=== PATIENT | male | born 1980 | race Hispanic/Latino ===

== ENCOUNTER 2018-10-02 09:48 | Outpatient (RCR) | payer MEDICARE, OTHER ==
[2018-10-02] MEDS ORDERED: COLLAGENASE OINTMENT 30 GM TUBE ONE (18:06)
[2018-10-02] MEDS ORDERED: LIDOCAINE/PRILOCAINE 2.5-2.5% KIT ONE (18:06)
[2018-10-02] MEDS ORDERED: MUPIROCIN 2% OINT 22 GM TUBE ONE (18:06)
== END 2018-10-08 ==
LOC: WCC 09:48
PROVIDERS: ATTEND Family Medicine
DX: E11.69 Type 2 diabetes mellitus with other specified complication (principal); L89.610 Pressure ulcer of right heel, unstageable; L89.95 Pressure ulcer of unspecified site, unstageable; B00.1 Herpesviral vesicular dermatitis; I10 Essential (primary) hypertension; N18.5 Chronic kidney disease, stage 5; H54.8 Legal blindness, as defined in USA; Z74.01 Bed confinement status
CPT/HCPCS: 87071; 87075; 87186; 87205

== ENCOUNTER 2018-11-05 13:24 | Outpatient (RCR) | payer MEDICARE, OTHER ==
[~2018-11-05 13:24] MED LIST: COLLAGENASE OINTMENT 30 GM TUBE ONE; LIDOCAINE VISC 2% SOLN 15 ML UDC ONE; LIDOCAINE/PRILOCAINE 2.5-2.5% KIT ONE; MUPIROCIN 2% OINT 22 GM TUBE ONE
--- NOTE | 2018-11-05 14:04 | Diagnostic Imaging Report ---
Exam: Left foot 3 views Clinical history: Ulcer Findings: Soft tissue defects noted in the lateral aspect of the distal first phalanx. There is no evidence of bony destructive changes to suggest advanced osteomyelitis. However, if there is clinical concern for early osteomyelitis, nuclear medicine bone scan or MR is recommended. Atherosclerotic calcification of the vessels are noted. Cortical deformity is noted at the base of the fifth proximal phalanx likely representing chronic posttraumatic changes. Impression: 1. Soft tissue defect in the lateral aspect of the first distal digit most consistent with patient's known ulceration. No radiographic evidence of bony destructive changes noted. Signed by: Dr. Noel Granda MD on 11/05/2018 2:00 PM
[2018-11-05 14:20] LABS: BASOPHILS % 0.4 % (0.0-1.0); EOSINOPHILS # (AUTO) 0.4 (0.0-0.4); EOSINOPHILS % 7.6 % (0.0-6.0); HEMATOCRIT 27.6 % (38.2-49.6); HEMOGLOBIN 8.7 g/dL (14.0-18.0); LYMPHOCYTES # (AUTO) 0.6 (1.0-3.2); LYMPHOCYTES % 9.7 % (18.0-39.1); MEAN CORPUSCULAR HGB CONC 31.5 g/dL (31-35); MEAN CORPUSCULAR VOLUME 88.7 fL (81-99); MONOCYTES % 17.5 % (4.4-11.3); NEUTROPHILS # (AUTO) 3.6 (2.1-6.9); NEUTROPHILS % 64.4 % (38.7-80.0); PLATELET COUNT 244 x10e3/uL (140-360); RED BLOOD COUNT 3.11 x10e6/uL (4.3-5.7); RED CELL DISTRIBUTION WIDTH 15.9 % (11.7-14.4)
[2018-11-05 14:38] LABS: ALBUMIN 3.2 g/dL (3.5-5.0); ALBUMIN/GLOBULIN RATIO 0.8 (0.8-2.0); ANION GAP 18.4 mmol/L (8-16); CALCIUM 10.3 mg/dL (8.4-10.2); CREATININE, SERUM 6.63 mg/dL (0.72-1.25); POTASSIUM 4.4 mmol/L (3.5-5.1)
[2018-11-05] MEDS ORDERED: LIDOCAINE/PRILOCAINE 2.5-2.5% KIT ONE (19:08)
[2018-11-05] MEDS ORDERED: COLLAGENASE OINTMENT 30 GM TUBE ONE (19:08)
[2018-11-05] MEDS ORDERED: MUPIROCIN 2% OINT 22 GM TUBE ONE (19:08)
== END 2018-11-08 ==
LOC: WCC 13:24
PROVIDERS: ATTEND Family Medicine
DX: E11.69 Type 2 diabetes mellitus with other specified complication (principal); L89.610 Pressure ulcer of right heel, unstageable; L89.95 Pressure ulcer of unspecified site, unstageable; N18.5 Chronic kidney disease, stage 5; I10 Essential (primary) hypertension; H54.8 Legal blindness, as defined in USA; B95.2 Enterococcus as the cause of diseases classified elsewhere; B00.1 Herpesviral vesicular dermatitis; Z74.01 Bed confinement status
CPT/HCPCS: 36415; 80053; 82948; 83036; 84134; 85025; 87071; 87075; 87186; 87205

== ENCOUNTER 2018-11-19 12:09 | Outpatient (RCR) | payer MEDICARE, OTHER ==
[2018-11-19] MEDS ORDERED: LIDOCAINE/PRILOCAINE 2.5-2.5% KIT ONE (19:05)
[2018-11-19] MEDS ORDERED: LIDOCAINE VISC 2% SOLN 15 ML UDC ONE (19:05)
[2018-11-19] MEDS ORDERED: MINERAL OIL/PETROLAT/GLYCERI 6OZ BTL ONE (19:05)
== END 2018-12-08 ==
LOC: WCC 12:09
PROVIDERS: ATTEND Family Medicine
DX: E11.69 Type 2 diabetes mellitus with other specified complication (principal); L89.610 Pressure ulcer of right heel, unstageable; L89.95 Pressure ulcer of unspecified site, unstageable; N18.5 Chronic kidney disease, stage 5; I10 Essential (primary) hypertension; B95.2 Enterococcus as the cause of diseases classified elsewhere; B00.1 Herpesviral vesicular dermatitis; H54.8 Legal blindness, as defined in USA; Z74.01 Bed confinement status

== ENCOUNTER 2019-01-07 10:40 | Outpatient (RCR) | payer MEDICARE, OTHER ==
[~2019-01-07 10:40] MED LIST changes: -LIDOCAINE/PRILOCAINE 2.5-2.5% KIT ONE
[2019-01-07] MEDS ORDERED: LIDOCAINE/PRILOCAINE 2.5-2.5% KIT ONE (19:23)
[2019-01-07] MEDS ORDERED: MUPIROCIN 2% OINT 22 GM TUBE ONE (19:23)
[2019-01-07] MEDS ORDERED: COLLAGENASE OINTMENT 30 GM TUBE ONE (19:23)
== END 2019-01-08 ==
LOC: WCC 10:40
PROVIDERS: ATTEND Family Medicine
DX: E11.69 Type 2 diabetes mellitus with other specified complication (principal); L89.610 Pressure ulcer of right heel, unstageable; L89.95 Pressure ulcer of unspecified site, unstageable; B00.1 Herpesviral vesicular dermatitis; N18.5 Chronic kidney disease, stage 5; I10 Essential (primary) hypertension; H54.8 Legal blindness, as defined in USA; B95.2 Enterococcus as the cause of diseases classified elsewhere; Z74.01 Bed confinement status

== ENCOUNTER 2019-02-04 10:16 | Outpatient (RCR) | payer MEDICARE, OTHER ==
[~2019-02-04 10:16] MED LIST changes: +ASPIRIN 325 MG TAB ONE; -COLLAGENASE OINTMENT 30 GM TUBE ONE; -LIDOCAINE VISC 2% SOLN 15 ML UDC ONE; +LIDOCAINE/PRILOCAINE 2.5-2.5% KIT ONE; -MUPIROCIN 2% OINT 22 GM TUBE ONE; +PRASUGREL 10 MG TAB ONE
[2019-02-04] MEDS ORDERED: MUPIROCIN 2% OINT 22 GM TUBE ONE (17:10)
[2019-02-04] MEDS ORDERED: LIDOCAINE/PRILOCAINE 2.5-2.5% KIT ONE (17:10)
== END 2019-02-07 ==
LOC: WCC 10:16
PROVIDERS: ATTEND Family Medicine
DX: E11.621 Type 2 diabetes mellitus with foot ulcer (principal); E11.69 Type 2 diabetes mellitus with other specified complication; L97.411 Non-pressure chronic ulcer of right heel and midfoot limited to breakdown of skin; L97.521 Non-pressure chronic ulcer of other part of left foot limited to breakdown of skin; N18.5 Chronic kidney disease, stage 5; I10 Essential (primary) hypertension; B00.1 Herpesviral vesicular dermatitis; H54.8 Legal blindness, as defined in USA; Z74.01 Bed confinement status
CPT/HCPCS: 11042; 15275 ×2; 36415; 82948; Q4186 ×2

== ENCOUNTER 2019-11-04 10:36 | Outpatient (RCR) | payer MEDICARE ==
[~2019-11-04 10:36] MED LIST changes: -ASPIRIN 325 MG TAB ONE; +COREG12.5 MG PO; +HYDRALAZINE HCL25 MG PO; -LIDOCAINE/PRILOCAINE 2.5-2.5% KIT ONE; +NIFEDIPINE ER30 M1 PO; -PRASUGREL 10 MG TAB ONE
== END 2019-11-09 ==
LOC: WCC 10:36
PROVIDERS: ATTEND Family Medicine
DX: T87.89 Other complications of amputation stump (principal); E11.69 Type 2 diabetes mellitus with other specified complication; N18.5 Chronic kidney disease, stage 5; I10 Essential (primary) hypertension; H54.8 Legal blindness, as defined in USA; B00.1 Herpesviral vesicular dermatitis; Z74.01 Bed confinement status

== ENCOUNTER → 2019-12-09 | Outpatient (RCR) | payer MEDICARE ==
[~2019-12-09] MED LIST changes: +LIDOCAINE/PRILOCAINE 2.5-2.5% KIT ONE; +MUPIROCIN 2% OINT 22 GM TUBE ONE
== END ==
LOC: WCC 11-11 10:34
PROVIDERS: ATTEND Family Medicine
DX: T87.89 Other complications of amputation stump (principal); E11.69 Type 2 diabetes mellitus with other specified complication; B00.1 Herpesviral vesicular dermatitis; H54.8 Legal blindness, as defined in USA; N18.5 Chronic kidney disease, stage 5; I10 Essential (primary) hypertension; Z74.01 Bed confinement status

== ENCOUNTER 2019-12-30 11:31 | Outpatient (RCR) | payer MEDICARE ==
[~2019-12-30 11:31] MED LIST changes: -LIDOCAINE/PRILOCAINE 2.5-2.5% KIT ONE; -MUPIROCIN 2% OINT 22 GM TUBE ONE
[2019-12-30] MEDS ORDERED: MUPIROCIN 2% OINT 22 GM TUBE ONE (14:05)
[2019-12-30] MEDS ORDERED: LIDOCAINE VISC 2% SOLN 15 ML UDC ONE (14:05)
== END 2020-01-09 ==
LOC: WCC 11:31
PROVIDERS: ATTEND Family Medicine
DX: T87.89 Other complications of amputation stump (principal); E11.69 Type 2 diabetes mellitus with other specified complication; N18.5 Chronic kidney disease, stage 5; I10 Essential (primary) hypertension; H54.8 Legal blindness, as defined in USA; B00.1 Herpesviral vesicular dermatitis; Z74.01 Bed confinement status

== ENCOUNTER 2020-01-27 11:31 | Outpatient (RCR) | payer MEDICARE ==
[~2020-01-27 11:31] MED LIST changes: +LIDOCAINE/PRILOCAINE 2.5-2.5% KIT ONE; +MUPIROCIN 2% OINT 22 GM TUBE ONE
[2020-01-27] MEDS ORDERED: MINERAL OIL/PETROLAT/GLYCERI 6OZ BTL ONE (13:58)
== END 2020-02-08 ==
LOC: WCC 11:31
PROVIDERS: ATTEND Family Medicine
DX: B00.1 Herpesviral vesicular dermatitis (principal); E11.69 Type 2 diabetes mellitus with other specified complication; T87.89 Other complications of amputation stump; N18.5 Chronic kidney disease, stage 5; I10 Essential (primary) hypertension; H54.8 Legal blindness, as defined in USA; Z74.01 Bed confinement status